=== PATIENT | female | born 1990 | race Two or more races ===

== ENCOUNTER 2019-12-25 09:29 | Emergency (ER) | payer OTHER ==
[2019-12-25 09:38] VITALS: BMI 30.7
[2019-12-25] MEDS ORDERED: ACETAMINOPHEN 500 MG TABLET (FP) PO ONE (10:14)
[2019-12-25] MEDS ORDERED: SODIUM CHLORIDE 0.9% 500 ML INFUS.BAG IV ONE ×3 (10:14→13:36)
--- NOTE | 2019-12-25 10:19 | PDOC ---
History of Present Illness - General History Source: Patient Exam Limitations: No Limitations - History of Present Illness Initial Comments: 12/25/19 10:16 29-year-old female with history of PCOS on OCPs presents complaining of frontal headache, fever, dry cough, body aches, nasal congestion, earache and sore throat since yesterday. Denies nausea, diarrhea, vomiting, abdominal pain, chest pain, shortness of breath, rash, sick contacts or recent travel. Tolerating p.o. fluids, took NyQuil last night, has not taken any pain meds today. ROS: GENERAL/CONSTITUTIONAL: Positive fever and chills, body aches, denies weakness, dizziness HEAD, EYES, EARS, NOSE AND THROAT: Positive sore throat and ear pain, nasal congestion, no changes in vision CARDIOVASCULAR: No chest pain RESPIRATORY: Cough GASTROINTESTINAL: No pain, nausea, vomiting, diarrhea or constipation GENITOURINARY: No dysuria MUSCULOSKELETAL: No neck or back pain SKIN: No rash NEUROLOGIC: Frontal headache, denies vertigo, loss of consciousness, or loss of sensation PE: GENERAL: Appears uncomfortable HEAD: NCAT EYES: Pupils equal, round and reactive to light, sclera anicteric, conjunctiva clear ENT: Normal bilateral ear canals and TMs, pharynx: no erythema, no exudate, uvula midline NECK: supple, no lymphadenopathy CHEST: nontender RESP: clear, no w/r/r CARDIO: rrr, no m/g/r ABD: +BS, soft, nontender, non distended BACK: no midline spinal ttp, no CVAT EXTREMITIES: Normal range of motion, no edema NEUROLOGICAL: Normal speech, normal gait SKIN: Warm, Dry Is this a multiple visit Asthma Patient?: No <Regine Barr - Last Filed: 12/25/19 16:03> <Chantale Steele - Last Filed: 12/25/19 16:32> - General Chief Complaint: Headache Stated Complaint: COLD SYMPTOMS Time Seen by Provider: 12/25/19 10:05 Past History - Past Medical History COPD: No Other medical history: PCOS - Immunization History Immunization Up to Date: Yes - Psycho Social/Smoking Cessation Hx Smoking Status: No Smoking History: Never smoked Have you smoked in the past 12 months: No Number of Cigarettes Smoked Daily: 0 Hx Alcohol Use: Yes Drug/Substance Use Hx: No Substance Use Type: None <Regine Barr - Last Filed: 12/25/19 16:03> <Chantale Steele - Last Filed: 12/25/19 16:32> - Past Medical History Allergies/Adverse Reactions: Allergies Allergy/AdvReac Type Severity Reaction Status Date / Time No Known Allergies Allergy Verified 12/25/19 09:32 Home Medications: Ambulatory Orders Norethindrone [Jo Ann] 0.35 mg PO DAILY 12/25/19 *Physical Exam - Vital Signs Last Vital Signs Temp Pulse Resp BP Pulse Ox 102.9 F H 121 H 20 118/59 L 92 L 12/25/19 09:33 12/25/19 09:33 12/25/19 09:33 12/25/19 09:33 12/25/19 09:33 <Regine Barr - Last Filed: 12/25/19 16:03> - Vital Signs Last Vital Signs Temp Pulse Resp BP Pulse Ox 99.0 F 99 H 20 103/62 96 12/25/19 15:58 12/25/19 16:30 12/25/19 13:48 12/25/19 15:58 12/25/19 15:58 <Chantale Steele - Last Filed: 12/25/19 16:32> ED Treatment Course - LABORATORY CBC & Chemistry Diagram: 12/25/19 15:05 12/25/19 15:00 <Regine Barr - Last Filed: 12/25/19 16:03> - LABORATORY CBC & Chemistry Diagram: 12/25/19 15:05 12/25/19 15:00 - ADDITIONAL ORDERS Additional order review: 12/25/19 15:05 RBC 4.17 MCV 80.9 MCHC 32.7 RDW 13.9 MPV 7.0 L Neutrophils % 81.6 D Lymphocytes % 10.4 D Monocytes % 7.5 Eosinophils % 0.2 D Basophils % 0.3 - Medications Given in the ED: ED Medications Discontinued Medications Generic Name Dose Route Start Last Admin Trade Name Freq PRN Reason Stop Dose Admin Acetaminophen 1,000 mg 12/25/19 10:14 12/25/19 10:35 Tylenol - PO 12/25/19 10:15 1,000 mg ONCE ONE Administration Ketorolac Tromethamine 30 mg 12/25/19 11:42 12/25/19 11:53 Toradol Injection - IVPUSH 12/25/19 11:43 30 mg ONCE ONE Administration Sodium Chloride 1,000 ml 12/25/19 10:14 12/25/19 10:35 Normal Saline - IV 12/25/19 10:15 1,000 ml ONCE ONE Administration Sodium Chloride 1,000 ml 12/25/19 11:41 12/25/19 11:53 Normal Saline - IV 12/25/19 11:42 1,000 ml ONCE ONE Administration Sodium Chloride 1,000 ml 12/25/19 13:36 12/25/19 13:42 Normal Saline - IV 12/25/19 13:37 1,000 ml ONCE ONE Administration <Chantale Steele - Last Filed: 12/25/19 16:32> Medical Decision Making - Medical Decision Making 12/25/19 10:57 29-year-old female with history of PCOS reporting frontal headache, dry cough, body aches, nasal congestion, fever since yesterday. Febrile, heart rate 120s IV fluids po acetaminophen Influenza swab Reassess 12/25/19 13:44 Influenza swab negative Headache resolved Temp 98.4 BP 89/53, patient feels slightly dizzy therefore will order 1 L of normal saline IV and repeat blood pressure 12/25/19 14:36 Will order CBC, CMP, blood cultures test Chest x-ray reassess 12/25/19 16:03 BP 100/60 HR 120's CONTE improved awaiting cmp and cxr results will transfer to main ED for ekg monitor tech and ecg signed out to resident Dr. Reed (Dr. Steele aware) 12/25/19 16:05 <Regine Barr - Last Filed: 12/25/19 16:03> - Medical Decision Making The patient was seen and evaluated in conjunction with midlevel provider under my direct supervision, ancillary studies were reviewed. I agree with the plan as outlined with DRAKE Solorzano, HPI, workup/dispo as outlined. VS reviewed, +tachy , fever, hypotensive +headache and fever. Given IVF, check labs, flu swab, CXR, reassess bumped back to main ER for evaluation ECG is sinus rhythm 99 bpm, no tachycardia, as rechecked is 99 bpm, so earlier likely error, 12/25/19 16:32 <Chantale Steele - Last Filed: 12/25/19 16:32> Discharge - Discharge Information Problems reviewed: Yes <Regine Barr - Last Filed: 12/25/19 16:03> <Chantale Steele - Last Filed: 12/25/19 16:32> - Discharge Information Clinical Impression/Diagnosis: Fever Qualifiers: Fever type: unspecified Qualified Code(s): R50.9 - Fever, unspecified Condition: Stable
[2019-12-25] MEDS ORDERED: ACETAMINOPHEN 500 MG TABLET (FP) ONE (10:32)
[2019-12-25] MEDS ORDERED: KETOROLAC TROMETHAMINE 30 MG/1 ML VIAL IVPUSH ONE (11:42)
[2019-12-25] MEDS ORDERED: KETOROLAC TROMETHAMINE 30 MG/1 ML VIAL ONE (11:49)
[2019-12-25 15:52] LABS: BASO % 0.3 % (0-2.0); EOS % 0.2 % (0-4.5); HEMATOCRIT 33.7 % (32.4-45.2); LYMPH % 10.4 % (8-40); MCH 26.4 pg (25.7-33.7); MCHC 32.7 g/dl (32.0-36.0); MEAN CELL VOLUME 80.9 fl (80-96); MONO % 7.5 % (3.8-10.2); NEUT % 81.6 % (42.8-82.8); PLATELET COUNT 237 K/MM3 (134-434); RBC 4.17 M/mm3 (3.60-5.2); RDW 13.9 % (11.6-15.6)
[2019-12-25 16:43] LABS: ALBUMIN 3.2 g/dl (3.4-5.0); ALK PHOS 97 U/L (45-117); ANION GAP 7 MMOL/L (8-16); BILIRUBIN,TOTAL 0.1 mg/dL (0.2-1); CHLORIDE 112 mmol/L (98-107); CO2 24 mmol/L (21-32); CREATININE 0.8 mg/dL (0.55-1.3); GLUCOSE,RANDOM 86 mg/dL (74-106); POTASSIUM 3.7 mmol/L (3.5-5.1); SGOT/AST 25 U/L (15-37); SGPT/ALT 14 U/L (13-61); SODIUM 143 mmol/L (136-145); TOT PROT 6.1 g/dl (6.4-8.2)
--- NOTE | 2019-12-25 16:54 | PDOC ---
*Physical Exam - Vital Signs Last Vital Signs Temp Pulse Resp BP Pulse Ox 98.8 F 101 H 20 132/83 97 12/25/19 17:01 12/25/19 16:46 12/25/19 16:46 12/25/19 16:46 12/25/19 16:46 <Chantale Steele - Last Filed: 12/25/19 18:06> - Vital Signs Last Vital Signs Temp Pulse Resp BP Pulse Ox 99.0 F 101 H 20 132/83 97 12/25/19 15:58 12/25/19 16:46 12/25/19 16:46 12/25/19 16:46 12/25/19 16:46 - Physical Exam General Appearance: Yes: Nourished, Appropriately Dressed. No: Apparent Distress HEENT: positive: EOMI, EMETERIO, Normal ENT Inspection, Normal Voice, Pharyngeal Erythema, Tonsillar Erythema, Rhinorrhea, Sinus Tenderness, TM Erythema. negative: Pharynx Normal (erythematous), Tonsillar Exudate, Thrush Neck: positive: Trachea midline, Supple, Lymphadenopathy (R). negative: Tender , Rigid, Decreased range of motion, Lymphadenopathy (L), Rigidity, Tender lateral, Tender midline Cardiovascular: positive: Regular Rhythm, Regular Rate, S1, S2 Vascular Pulses: Dorsalis-Pedis (R): 2+, Doralis-Pedis (L): 2+ Gastrointestinal/Abdominal: positive: Normal Bowel Sounds, Soft Rectal Exam: positive: deferred Lymphatic: positive: Adenopathy Musculoskeletal: positive: Normal Inspection. negative: CVA Tenderness Extremity: positive: Normal Capillary Refill, Normal Inspection, Normal Range of Motion. negative: Tender Integumentary: positive: Normal Color, Dry, Warm Neurologic: positive: doll wig maker II-XII NML intact, Fully Oriented, Alert, Normal Mood/ Affect, Normal Response, Motor Strength 5/5, Respond to painful stimul, Responsive, Other (Negative Kernig). negative: Abnormal Cranial NS, EOM Palsy, Facial Droop, Numbness, Sensory Deficit, Finger to Nose, Confused, Disoriented, Depressed Affect, Babinski <Raheel Solorio - Last Filed: 12/25/19 18:52> ED Treatment Course - LABORATORY CBC & Chemistry Diagram: 12/25/19 15:05 12/25/19 15:00 - ADDITIONAL ORDERS Additional order review: Laboratory Results 12/25/19 12/25/19 12/25/19 16:43 15:00 15:00 Sodium 143 Potassium 3.7 Chloride 112 H Carbon Dioxide 24 Anion Gap 7 L BUN 9.0 Creatinine 0.8 Est GFR (CKD-EPI)AfAm 115.47 Est GFR (CKD-EPI)NonAf 99.63 Random Glucose 86 Calcium 7.0 L Total Bilirubin 0.1 L AST 25 ALT 14 Alkaline Phosphatase 97 Total Protein 6.1 L Albumin 3.2 L Beta HCG, Quant Cancelled < 1.0 Urine Color Yellow Urine Appearance Clear Urine pH 6.0 Ur Specific [place] 1.005 L Urine Protein Negative Urine Glucose (UA) Negative Urine Ketones Negative Urine Blood Negative Urine Nitrite Negative Urine Bilirubin Negative Urine Urobilinogen 0.2 Ur Leukocyte Esterase Negative 12/25/19 15:05 RBC 4.17 MCV 80.9 MCHC 32.7 RDW 13.9 MPV 7.0 L Neutrophils % 81.6 D Lymphocytes % 10.4 D Monocytes % 7.5 Eosinophils % 0.2 D Basophils % 0.3 - Medications Given in the ED: ED Medications Discontinued Medications Generic Name Dose Route Start Last Admin Trade Name Willianq PRN Reason Stop Dose Admin Acetaminophen 1,000 mg 12/25/19 10:14 12/25/19 10:35 Tylenol - PO 12/25/19 10:15 1,000 mg ONCE ONE Administration Ketorolac Tromethamine 30 mg 12/25/19 11:42 12/25/19 11:53 Toradol Injection - IVPUSH 12/25/19 11:43 30 mg ONCE ONE Administration Sodium Chloride 1,000 ml 12/25/19 10:14 12/25/19 10:35 Normal Saline - IV 12/25/19 10:15 1,000 ml ONCE ONE Administration Sodium Chloride 1,000 ml 12/25/19 11:41 12/25/19 11:53 Normal Saline - IV 12/25/19 11:42 1,000 ml ONCE ONE Administration Sodium Chloride 1,000 ml 12/25/19 13:36 12/25/19 13:42 Normal Saline - IV 12/25/19 13:37 1,000 ml ONCE ONE Administration <Chantale Steele - Last Filed: 12/25/19 18:06> - LABORATORY CBC & Chemistry Diagram: 12/25/19 15:05 12/25/19 15:00 - ADDITIONAL ORDERS Additional order review: Laboratory Results 12/25/19 15:00 Sodium 143 Potassium 3.7 Chloride 112 H Carbon Dioxide 24 Anion Gap 7 L BUN 9.0 Creatinine 0.8 Est GFR (CKD-EPI)AfAm 115.47 Est GFR (CKD-EPI)NonAf 99.63 Random Glucose 86 Calcium 7.0 L Total Bilirubin 0.1 L AST 25 ALT 14 Alkaline Phosphatase 97 Total Protein 6.1 L Albumin 3.2 L 12/25/19 15:05 RBC 4.17 MCV 80.9 MCHC 32.7 RDW 13.9 MPV 7.0 L Neutrophils % 81.6 D Lymphocytes % 10.4 D Monocytes % 7.5 Eosinophils % 0.2 D Basophils % 0.3 - Medications Given in the ED: ED Medications Discontinued Medications Generic Name Dose Route Start Last Admin Trade Name Freq PRN Reason Stop Dose Admin Acetaminophen 1,000 mg 12/25/19 10:14 12/25/19 10:35 Tylenol - PO 12/25/19 10:15 1,000 mg ONCE ONE Administration Ketorolac Tromethamine 30 mg 12/25/19 11:42 12/25/19 11:53 Toradol Injection - IVPUSH 12/25/19 11:43 30 mg ONCE ONE Administration Sodium Chloride 1,000 ml 12/25/19 10:14 12/25/19 10:35 Normal Saline - IV 12/25/19 10:15 1,000 ml ONCE ONE Administration Sodium Chloride 1,000 ml 12/25/19 11:41 12/25/19 11:53 Normal Saline - IV 12/25/19 11:42 1,000 ml ONCE ONE Administration Sodium Chloride 1,000 ml 12/25/19 13:36 12/25/19 13:42 Normal Saline - IV 12/25/19 13:37 1,000 ml ONCE ONE Administration <Raheel Solorio - Last Filed: 12/25/19 18:52> Medical Decision Making - Medical Decision Making agree with resident exam and HPI. VS reviewed, HR improving headache and fever resolved HD appropriate labs and lytes wnl. Repeat flu is positive, will treat with Tamiflu given severity of her symptoms, negative strep, follow-up on cultures. DC supportive care, in stable condition return precautions hydration and adequate rest. 12/25/19 18:06 <Chantale Steele - Last Filed: 12/25/19 18:06> - Medical Decision Making Patient signed out to pending re-assessment on my history she sounds like she has the flu with fevers, sore throat, body aches, headache, cough, runny nose. - There is no nuchal rigidity and no neck stiffness. Patient can easily range her head and neck without difficulty. Plan: Repeat flu swab as first oen not done correctly Repeat flu swab: Positive - Treating with tamiflu Dispo: Home w PCP fu - Return precautions <Raheel Solorio - Last Filed: 12/25/19 18:52> Discharge <Chantale Steele - Last Filed: 12/25/19 18:06> - Discharge Information Problems reviewed: Yes - Admission No <Raheel Solorio - Last Filed: 12/25/19 18:52> - Discharge Information Clinical Impression/Diagnosis: Influenza A Fever Qualifiers: Fever type: unspecified Qualified Code(s): R50.9 - Fever, unspecified Condition: Improved Disposition: HOME - Additional Discharge Information Prescriptions: Oseltamivir Phosphate [Tamiflu -] 75 mg PO BID #10 capsule Oseltamivir Phosphate [Tamiflu -] 75 mg PO BID #10 capsule - Follow up/Referral Referrals: [facility] [place] [facility] [place] [Provider Group] - Patient Discharge Instructions Patient Printed Discharge Instructions: Influenza Vaccine (Alternative Therapy) , Influenza (Alternative Therapy), Influenza Additional Instructions: You came into the ER with fever, chills, body aches, and muscle pain. You have the Flu. We are sending a medication to your pharmacy - please make sure to go and pick it up. (Tamiflu) Schedule a follow up appointment with your primary care doctor in the next 3 to 5 days. Come back to the ER with any new or worsening concerns. Drink plenty of water and take ibuprofen/advil/motrin as needed for discomfort. Thank you for coming to the [facility] ER. We hope you feel better soon! Print Language: TURKMEN - Post Discharge Activity Work/Back to School Note: Back to Work
[2019-12-25 17:02] VITALS: TEMP 98.8
[2019-12-25 17:52] LABS: URINE APPEARANCE CLEAR; URINE BILIRUBIN NEGATIVE (NEGATIVE); URINE COLOR YELLOW; URINE GLUCOSE (UA) NEGATIVE (NEGATIVE); URINE KETONE NEGATIVE (NEGATIVE); URINE LEUK ESTERASE NEGATIVE (NEGATIVE); URINE NITRITE NEGATIVE (NEGATIVE); URINE PROTEIN NEGATIVE (NEGATIVE); URINE UROBILINOGEN 0.2 mg/dL (0.2-1.0)
[2019-12-25] MEDS ORDERED: OSELTAMIVIR PHOSPHATE 75 MG CAPSULE PO ONE (18:02)
[2019-12-25] MEDS ORDERED: OSELTAMIVIR PHOSPHATE 75 MG CAPSULE ONE (18:09)
[2019-12-25 18:15] VITALS: BP 116/72; PULSE 108
--- NOTE | 2020-01-16 14:14 | EKG ---
Test Reason : Blood Pressure : / mmHG Vent. Rate : 099 BPM Atrial Rate : 099 BPM P-R Int : 146 ms QRS Dur : 074 ms QT Int : 356 ms P-R-T Axes : 068 059 031 degrees QTc Int : 456 ms NORMAL SINUS RHYTHM NORMAL ECG NO PREVIOUS ECGS AVAILABLE Confirmed by VIKKI BARRIENTOS MD ([id number]) on 01/16/2020 2:14:39 PM Referred By: Confirmed By:VIKKI BARRIENTOS MD
== END 2019-12-25 18:16 | disposition home or self-care (01) ==
LOC: JER 09:29
PROC: 3E0337Z Introduction of Electrolytic and Water Balance Substance into Peripheral Vein, Percutaneous Approach (ICD-10-PCS; principal; 2019-12-25)
PROC: 3E0333Z Introduction of Anti-inflammatory into Peripheral Vein, Percutaneous Approach (ICD-10-PCS; 2019-12-25)
DX: R50.9 Fever, unspecified (principal)
CPT/HCPCS: 36415; 71046-TC-FY; 80053; 81003; 84702; 85025; 87040; 87070; 87086; 87804; 87880; 93005; 93010; 99284-25